=== PATIENT | male | born 1935 | race Caucasian/White ===

== ENCOUNTER → 2017-12-20 | Outpatient (CLI) | payer MEDICARE, OTHER ==
[~2017-12-20] MED LIST: ALLO300 PO; AMLO10 PO; ASPI325 PO; ATOR10 PO; Avapro300 MG; CETI5 PO; CHLO25B PO; CLOP75 PO; COLCRYS0.6 MG PO; CROM10OPSO BOTHEYES; DEMADEX PO; FISH1000 PO; LIVALO2 MG PO; MELO7.5 PO; OLME20 PO; OXYC5 PO; SALS500 PO; VIT1CAPS12 PO; WARF4 PO
== END | disposition home or self-care (01) ==
LOC: PLD 10:31 → LAB SHORT 10:31
DX: C44.311 Basal cell carcinoma of skin of nose (principal); D48.5 Neoplasm of uncertain behavior of skin
CPT/HCPCS: 88305

== ENCOUNTER → 2020-04-14 | Outpatient (CLI) | payer MEDICARE, OTHER | END | disposition home or self-care (01) | LOC: LAB SHORT 15:47 → LAB 15:47 | DX: L08.9 Local infection of the skin and subcutaneous tissue, unspecified (principal) | CPT/HCPCS: 87070; 87075; 87077; 87147; 87186; 87205 ==

== ENCOUNTER → 2020-04-26 | Outpatient (CLI) | payer MEDICARE, OTHER | END | disposition home or self-care (01) | LOC: LAB SHORT 14:12 → PLD 14:12 | DX: D48.5 Neoplasm of uncertain behavior of skin (principal) | CPT/HCPCS: 88305 ==

== ENCOUNTER → 2020-06-08 | Outpatient (CLI) | payer MEDICARE, OTHER ==
[2020-06-08 09:21] LABS: Source, Urine Clean Catch
[2020-06-08 10:25] LABS: Appearance, Urine Clear (Clear); Bilirubin, Urine Neg (Neg); Blood, Urine Neg (Neg); Color, Urine Yellow (P-Yellow); Glucose Qualitative, Urine Neg (Neg); Ketones, Urine Neg (Neg); Leukocyte Esterase, Urine Neg (Neg); Nitrite, Urine Neg (Neg); Protein, Urine Neg (Neg); Urobilinogen, Urine NORM (Normal)
[2020-06-08 14:03] LABS: Stool Occult Bld Immuno 1 Negative (NEGATIVE)
== END | disposition home or self-care (01) ==
LOC: LAB 06:30 → LAB SHORT 06:30 → LAB FUT 06-04 10:00
PROVIDERS: Internal Medicine
DX: Z12.11 Encounter for screening for malignant neoplasm of colon (principal); N39.0 Urinary tract infection, site not specified
CPT/HCPCS: 81003; G0328

== ENCOUNTER → 2020-12-20 | Outpatient (CLI) | payer MEDICARE, OTHER ==
[2020-12-22 13:11] LABS: M-SPIKE, % Not Observed % (Not Observed); PROTEIN,TOTAL,URINE 34.3 mg/dL (Not Estab.)
== END | disposition home or self-care (01) ==
LOC: LAB 06:30 → LAB SHORT 06:30 → LAB FUT 12-15 14:00
PROVIDERS: Internal Medicine
DX: E87.8 Other disorders of electrolyte and fluid balance, not elsewhere classified (principal)
CPT/HCPCS: 81050; 84156; 84166

== ENCOUNTER 2021-05-04 10:25 | Day surgery (SDC) | payer MEDICARE, OTHER ==
[~2021-05-04] VITALS: Ht 172.7 cm; Wt 83.0 kg
[~2021-05-04 10:25] MED LIST changes: +Aspir 8181 MG; +IRBE150
[2021-05-04 11:24] LABS: SARS-Cov-2 (COVID-19) PCR, MMC NEGATIVE (NEGATIVE)
[2021-05-04] MEDS ORDERED: ACET500 PO (11:30)
== END 2021-05-04 13:25 | disposition home or self-care (01) ==
LOC: ORSCSDS 10:25
PROVIDERS: Internal Medicine Gastroenterology
PROC: 0DJD8ZZ Inspection of Lower Intestinal Tract, Via Natural or Artificial Opening Endoscopic (ICD-10-PCS; principal; 2021-05-04 11:15)
DX: R19.4 Change in bowel habit (principal); Z86.010 Personal history of colon polyps; K57.30 Diverticulosis of large intestine without perforation or abscess without bleeding; Z87.891 Personal history of nicotine dependence; Z79.899 Other long term (current) drug therapy
CPT/HCPCS: J2704; J7120; U0004

== ENCOUNTER 2022-03-30 07:42 | Day surgery (SDC) | payer MEDICARE, OTHER ==
[~2022-03-30] VITALS: Ht 172.7 cm; Wt 86.1 kg
[~2022-03-30 07:42] MED LIST changes: +ACET500 PO
--- NOTE | 2022-03-30 08:10 | NUR ---
03/30/22 0810 Izzy Baca CALL LIGHT WITHIN REACH. TETRACAIN IN THE RIGHT EYE AT [phone] AND TAWNYAETT AT 0808
== END 2022-03-30 09:29 | disposition home or self-care (01) ==
LOC: ORSCSDS 07:42
PROVIDERS: Ophthalmology
PROC: 08RJ3JZ Replacement of Right Lens with Synthetic Substitute, Percutaneous Approach (ICD-10-PCS; principal; 2022-03-30 09:00)
DX: H25.13 Age-related nuclear cataract, bilateral (principal); H52.201 Unspecified astigmatism, right eye; I12.9 Hypertensive chronic kidney disease with stage 1 through stage 4 chronic kidney disease, or unspecified chronic kidney disease; N18.9 Chronic kidney disease, unspecified; Z86.73 Personal history of transient ischemic attack (TIA), and cerebral infarction without residual deficits; I25.10 Atherosclerotic heart disease of native coronary artery without angina pectoris; Z87.891 Personal history of nicotine dependence; Z79.82 Long term (current) use of aspirin; Z79.899 Other long term (current) drug therapy
CPT/HCPCS: J2001; J2250; J3010; J3301; J7040; V2632

== ENCOUNTER 2022-04-27 07:42 | Day surgery (SDC) | payer MEDICARE, OTHER ==
[~2022-04-27] VITALS: Ht 172.7 cm; Wt 85.3 kg
[~2022-04-27 07:42] MED LIST changes: +DISALCID500 M1 PO
--- NOTE | 2022-04-27 08:20 | NUR ---
04/27/22 0820 Ankita Ridley TETRACAINE GTT: 0814 PLEDGETT: 0840
== END 2022-04-27 09:39 | disposition home or self-care (01) ==
LOC: ORSCSDS 07:42
PROVIDERS: Ophthalmology
PROC: 08RK3JZ Replacement of Left Lens with Synthetic Substitute, Percutaneous Approach (ICD-10-PCS; principal; 2022-04-27 09:00)
DX: H25.12 Age-related nuclear cataract, left eye (principal); H52.202 Unspecified astigmatism, left eye; Z96.1 Presence of intraocular lens; Z87.891 Personal history of nicotine dependence; I10 Essential (primary) hypertension; E78.5 Hyperlipidemia, unspecified; I73.9 Peripheral vascular disease, unspecified; I25.10 Atherosclerotic heart disease of native coronary artery without angina pectoris; Z86.73 Personal history of transient ischemic attack (TIA), and cerebral infarction without residual deficits; Z79.899 Other long term (current) drug therapy
CPT/HCPCS: J2001; J2250; J3010; J3301; J7040; V2632

== ENCOUNTER 2022-08-13 11:01 | Emergency (ER) | payer MEDICARE, OTHER ==
[~2022-08-13] VITALS: Ht 172.7 cm; Wt 83.9 kg
[2022-08-13] MEDS ORDERED: HYDR1TAB94 PO (11:51)
[2022-08-13] MEDS ORDERED: Robaxin750 MG PO (11:51)
== END 2022-08-13 12:09 | disposition home or self-care (01) ==
LOC: ER 11:01
DX: M25.512 Pain in left shoulder (principal); I10 Essential (primary) hypertension; Z88.8 Allergy status to other drugs, medicaments and biological substances; Z79.899 Other long term (current) drug therapy; Z79.82 Long term (current) use of aspirin; Z87.891 Personal history of nicotine dependence
CPT/HCPCS: 73030; J1885

== ENCOUNTER 2022-10-21 13:50 | Emergency (ER) | payer MEDICARE, OTHER ==
[~2022-10-21] VITALS: Ht 172.7 cm; Wt 83.9 kg
[~2022-10-21 13:50] MED LIST changes: +HYDR1TAB94 PO; +Robaxin750 MG PO
== END 2022-10-21 17:06 | disposition home or self-care (01) ==
LOC: ER 13:50
DX: M25.512 Pain in left shoulder (principal); I10 Essential (primary) hypertension; X50.0XXA Overexertion from strenuous movement or load, initial encounter; Z88.8 Allergy status to other drugs, medicaments and biological substances; Z79.899 Other long term (current) drug therapy; Z79.82 Long term (current) use of aspirin; Z87.891 Personal history of nicotine dependence
CPT/HCPCS: 73030; J1885